=== PATIENT | female | born 1960 | race Caucasian/White ===

== ENCOUNTER → 2016-10-22 07:55 | Outpatient (CLI) | payer BC ==
[2015-01-28 11:50] VITALS: BMI 33.3
[~2016-10-22 07:55] MED LIST: ASPIRIN EC81 M1 PO; KLOR-CON 1010 MEQ PO; LASIX20 MG PO; MELOXICAM PO; TOPAMAX100 MG PO; ZOCOR80 MG PO; ZYRTEC10 MG PO
== END | disposition home or self-care (01) ==
LOC: D.CT 07:55
DX: N28.89 Other specified disorders of kidney and ureter (principal)

== ENCOUNTER 2016-11-25 05:31 | Day surgery (SDC) | payer BC ==
[2016-11-24 14:42] LABS: HEMATOCRIT 40.2 % (36.0-48.0); HEMOGLOBIN 13.4 g/dL (12-16); MCHC 33.3 g/dL (31.0-37.0); MEAN PLATELET VOLUME 9.9 fL (7.4-10.4); RBC 4.62 10x6/uL (4.00-5.40); RDW 12.7 % (11.5-14.5); WBC 6.6 10x3/uL (4.8-10.8)
[~2016-11-25] VITALS: Ht 165.1 cm; Wt 92.5 kg
[2016-11-25] MEDS ORDERED: BIOTIN5 MG PO (07:40)
[2016-11-25] MEDS ORDERED: ATIVAN0.5 MG PO (07:40)
[2016-11-25] MEDS ORDERED: BUPROPION HCL150 M1 PO (07:41)
[2016-11-25] MEDS ORDERED: VOLTAREN75 MG PO (07:42)
[2016-11-25] MEDS ORDERED: CELEXA20 MG PO (07:42)
[2016-11-25 07:48] VITALS: BP 91/52; Ht 165.1 cm; Wt 92.5 kg
--- NOTE | 2016-11-26 09:45 | OP ---
PATIENT NAME: NOLBERTO GASCA MEDICAL RECORD: [id number] :56 LOCATION:[facility] ADMISSION DATE: SURGEON: ROSANNA SHORT MD DATE OF OPERATION: 11/25/2016 SURGEON: Dr. Rosanna Short. ANESTHESIA: General anesthesia by Hoang Klein CRNA. PREOPERATIVE DIAGNOSES: Microhematuria, female stress urinary incontinence. PROCEDURES: Cystoscopy, pubovaginal sling insertion with [employer] Lynx mesh graft. FINDINGS: Hypermobile urethra. Preexisting vaginal inflammation in the fold near the urethral meatus. On cystoscopy, single ureteral orifices bilaterally. No bladder tumors. No bladder injury. ESTIMATED BLOOD LOSS: 15 mL. CLINICAL HISTORY: This is a 56-year-old female, who is a nonsmoker. She is 0, para 0, aborted 0. She has been investigated by Dr. Kelli Larry for microhematuria. She had a CT scan, which showed normal kidneys. Urine cytology has been negative. She will require cystoscopy. She has had a previous hysterectomy. She did complain also stress urinary incontinence for which she has used at least 1 pad per day. She does not have any urgency. PHYSICAL EXAMINATION: She had urethral hypermobility and stress incontinence was noted. No cystocele, enterocele, rectocele was noted. She comes now to have correction of the stress incontinence with a pubovaginal sling. Risks of urinary retention, persistence of stress incontinence, new onset of urge incontinence, graft erosion, graft infection, graft exposure, dyspareunia and vaginal pain were also explained as risks of the procedure. She was aware of the risks and she wanted to proceed with surgery. She is not allergic to any medications and we gave her Ancef 2 grams IV information resources director to the OR. DESCRIPTION OF PROCEDURE: The patient was given induction of general anesthesia. She was then placed into dorsal lithotomy position and shaved, prepped and draped. 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 A weighted speculum was placed to hold down the posterior vaginal wall. We then inserted a Posadas catheter into the bladder to drain the bladder. The anterior vaginal wall was inspected. There was a fold of skin in the anterior vaginal wall near the urethral meatus, which had some inflammation within it. However, I did not feel that this would contraindicate our proceeding with the surgery today. The anterior vaginal wall was infiltrated with Pitressin solution. Twenty units of Pitressin was dissolved in 100 mL of injectable saline. This solution was used for hydrodissection of the anterior vaginal wall. An approximately 1 cm long vertical midline incision was made over the course of the urethra in the anterior vaginal wall. Dissection was then proceeded laterally using tenotomy scissors initially to raise a vaginal mucosal flaps and then completing the dissection with Metzenbaum scissors. The aim was to reach the obturator membrane on each lateral pelvic side wall. The obturator membranes were reached. We then landmark the position of the transobturator needle insertion. This is inferior to the insertion of the adductor longus muscle on to the pubic OPERATIVE REPORT [id number] NOLBERTO GASCA. At this point, it was marked out on each side. The small stab incision was made with a 15 blade. The Lynx trocars were then passed through the skin incision around the back of the descending pubic ramus and through the anterior apex of the obturator membrane. It then came out of the vaginal dissection space. The end of the graft was attached to the tip of the needle and needle was withdrawn to pull the graft through. This was done on each side. There is a tab on the middle of the graft to indicate the midpoint. This was placed under the mid urethra. At this point, we removed the Posadas catheter and cystoscopy was performed using a 30-degree lens on a 17-Uzbek cystoscope. There was no sign of injury to the bladder. There were also no bladder tumors. The bladder was then completely filled using the cystoscope. The cystoscope was then removed. We could see the flow of water coming out of the urethra. The tab was removed by cutting it the string and then entirely removing that tab on the graft. The graft was pulled with the graft arms on each side with a Nahomy clamp underneath the urethra to make sure that the graft lay completely flat under the mid urethra. We then adjusted the tension until the leakage from the bladder completely stopped. At this point, the clear plastic sheath material on the distal end of the graft material were cut through. The clear plastic sheath material was completely removed. The string going from the sheath into the graft was also entirely removed. With the sling fitting perfectly flat under the mid urethra, we then cut the excess length of sling where it exited the transobturator skin incisions. The skin incisions were closed with simple interrupted 4-0 Vicryl. The vaginal wound was irrigated out using normal saline. The Posadas catheter was temporarily placed back in to fully drain her bladder. A 4-0 Monocryl was used in running fashion to completely close the anterior vaginal wall incision. It was closed in transverse fashion. A vaginal packing which is Kerlix infiltrated with Silvadene cream was then placed into the vagina. The packing will be present for only hour or 2 and then it can be removed. The Posadas catheter was removed and the patient was awakened and brought to the recovery room. I will have the patient try to void today. If she cannot void, then a Posadas catheter will have to be placed back in for her to be discharged home. In that case, I would like to see her back tomorrow morning for a voiding trial. TRANSINT:[id number] Voice Confirmation ID: [id number] DOCUMENT ID: [id number] ROSANNA SHORT MD at 0945 CC: [id number] DICTATION DATE: 11/25/16 1108 [facility] CASER: 11/25/16 1853 [facility] 11/25/16 [facility] [address] [place] [address]
== END 2016-11-25 13:10 | disposition home or self-care (01) ==
LOC: D.OPS 05:31 → D.PAN 08:45 → D.OPS 09:30 → D.PAN 09:30 → D.OPS 10:00
PROVIDERS: Anesthesiology
DX: N39.3 Stress incontinence (female) (male) (principal); R31.29 Other microscopic hematuria; N36.41 Hypermobility of urethra; Z86.718 Personal history of other venous thrombosis and embolism; Z01.812 Encounter for preprocedural laboratory examination